=== PATIENT | male | born 1945 | race Caucasian/White ===

== ENCOUNTER 2016-07-13 09:08 | Emergency (ER) | payer MEDICARE, BC ==
--- NOTE | 2016-07-13 10:45 | ED ---
Wu Lacy Billy, scribed for Teofilo Leary MD on 07/13/16 at 1014 . Neurological HPI - HPI Summary HPI Summary: Patient is a 70 year-old male coming to [facility] for evaluation of right-sided facial droop for the last three days. Nothing makes his symptoms better or worse. The patient states that one week ago, he was reading on the bus when he developed vertigo that was worse with certain positions. He also states that his right eye has been teary for the last several days. 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 - History of Current Complaint Chief Complaint: EDNeurologicalDeficit Stated Complaint: FACIAL DROOPING Time Seen by Provider: 07/13/16 09:58 Hx Obtained From: Patient Onset/Duration: Gradual Onset, Started days ago Timing: Constant Onset Severity: Moderate Current Severity: Moderate Neurological Deficit Location: Facial Pain Intensity: 0 Aggravating: Unknown Alleviating: Unknown - Additional Pertinent History Primary Care Physician: MAHAMED - Allergy/Home Medications Allergies/Adverse Reactions: Allergies Allergy/AdvReac Type Severity Reaction Status Date / Time No Known Allergies Allergy Verified 07/13/16 09:13 PMH/Surg Hx/FS Hx/Imm Hx Endocrine/Hematology History: Reports: Hx Anticoagulant Therapy - ASA Denies: Hx Diabetes, Hx Thyroid Disease Cardiovascular History: Reports: Hx Coronary Artery Disease - Stent, Hx Hypercholesterolemia, Hx Myocardial Infarction, Other Cardiovascular Problems/ Disorders - FOLLOWED BY DR KLEIN, stenting Denies: Hx Hypertension, Hx Peripheral Vascular Disease Respiratory History: Reports: Hx Sleep Apnea - USES A "SILENT NIGHT" MOUTH GEAR Denies: Hx Asthma, Hx Chronic Obstructive Pulmonary Disease (COPD) GI History: Reports: Hx Hiatal Hernia - LONG TIME Dx, NO Sx, NO MEDS, Hx Ulcer - duadenal ulcer, Other GI Disorders - Inguinal hernia History: Reports: Hx Kidney Stones Musculoskeletal History: Reports: Other Musculoskeletal History - Rt total knee Denies: Hx Arthritis, Hx Osteoporosis Sensory History: Reports: Hx Contacts or Glasses Opthamlomology History: Reports: Hx Contacts or Glasses Neurological History: Reports: Hx Headaches Denies: Hx Seizures, Hx Transient Ischemic Attacks (TIA) Psychiatric History: Denies: Hx Anxiety, Hx Depression - Surgical History Surgery Procedure, Year, and Place: YOUNG CHILD T&A. 1953 Appendectomy, [place]. 1954 ING. HERNIA REPAIR. [id number] Inguinal Hernia Repair LEFT & RIGHT [facility]. 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 Hx Anesthesia Reactions: No Infectious Disease History: Denies: Hx Hepatitis, Hx Human Immunodeficiency Virus (HIV), Traveled Outside the [place] in Last 30 Days - Family History Family History: No FHx anesthesia reaction - Social History Alcohol Use: Daily Alcohol Amount: 1-2 PER DAY Hx Substance Use: No Substance Use Type: Reports: None Smoking Status (MU): Former Smoker Type: Cigarettes Amount Used/How Often: 1 1/2 PPD 6 YRS Have You Smoked in the Last Year: No Review of Systems Positive: Drainage Neurological: Other - right-sided facial droop; vertigo All Other Systems Reviewed And Are Negative: Yes Physical Exam Triage Information Reviewed: Yes Vital Signs On Initial Exam: Initial Vitals Temp Pulse Resp BP Pulse Ox 97.3 F 77 17 127/63 100 07/13/16 09:11 07/13/16 09:11 07/13/16 09:11 07/13/16 09:11 07/13/16 09:11 Vital Signs Reviewed: Yes Appearance: Positive: Well-Appearing, No Pain Distress Skin: Positive: Warm, Skin Color Reflects Adequate Perfusion, Dry Head/Face: Positive: Other - There is mild facial droop, forehead included. House-Brackmann grade III. Eyes: Positive: Normal ENT: Positive: Normal ENT inspection Neck: Positive: Supple, Nontender Respiratory/Lung Sounds: Positive: Clear to Auscultation, Breath Sounds Present Cardiovascular: Positive: RRR Abdomen Description: Positive: Nontender, Soft Musculoskeletal: Positive: Normal Neurological: Positive: Sensory/Motor Intact, Alert, Oriented to Person Place, Time Psychiatric: Positive: Affect/Mood Appropriate - Kevin Coma Scale Coma Scale Total: 15 Diagnostics - Vital Signs Vital Signs Temp Pulse Resp BP Pulse Ox 07/13/16 09:11 97.3 F 77 17 127/63 100 - Laboratory Lab Statement: Any lab studies that have been ordered have been reviewed, and results considered in the medical decision making process. Course/Dx - Course Course Of Treatment: Mr Downing presented with about 24 hours of right facial weakness involving his forehead and accompanied by a change in taste sensation and a mild discomfort behind his right ear. He has no other cranial nerve signs or symptoms, this seems clearly to be a Kren's and I will treat himm accordingly. - Diagnoses Provider Diagnoses: Kern's palsy Discharge - Discharge Plan Condition: Stable Disposition: HOME Prescriptions: ValACYclovir (*) [Valtrex 1 GM(*)] 1 gm PO TID #21 tab predniSONE TAB* [Deltasone TAB*] 80 mg PO DAILY #28 tab Patient Education Materials: Kern Palsy (ED) Referrals: Igor Gaspar MD [Primary Care Provider] - The documentation as recorded by the Wu rich Billy accurately reflects the service I personally performed and the decisions made by me, Teofilo Leary MD.
[2016-07-13 11:06] VITALS: BP 117/84
== END 2016-07-13 11:13 | disposition home or self-care (01) ==
LOC: ED 09:08
DX: G51.0 Bell's palsy (principal); R42 Dizziness and giddiness; Z87.891 Personal history of nicotine dependence
CPT/HCPCS: 99282

== ENCOUNTER 2016-09-28 19:59 | Emergency (ER) | payer MEDICARE, BC ==
[2016-09-28] MEDS ORDERED: NS 0.9% 1000 ML* 1,000 ML IV ONE (20:32)
[2016-09-28] MEDS ORDERED: Famotidine IV* 10 MG/ML 2 ML (20 mg) IV SLOW PU ONE (20:33)
[2016-09-28] MEDS ORDERED: diPHENhydraMINE IV* 50 MG/ML 1 ml VIAL (BENADRYL) IV ONE (20:33)
[2016-09-28 20:38] LABS: Hematocrit 48 % (42-52); Hemoglobin 15.9 g/dl (14.0-18.0); Mean Corpuscular HGB Conc 33 g/dl (31-36); Mean Corpuscular Hemoglobin 33 pg (27-31); Mean Corpuscular Volume 99 fL (80-94); Mean Platelet Volume 9 um3 (7.4-10.4); Red Blood Count 4.83 10^6/ul (4.0-5.4); Red Cell Distribution Width 13 % (10.5-15); White Blood Count 5.2 10^3/ul (3.5-10.8)
[2016-09-28 20:53] LABS: BUN/Creatinine Ratio 21.8 (8-20); EGFR African American 93.4 (>60); EGFR Non-African American 72.6 (>60); Globulin 2.2 g/dL (2-4); Potassium 3.2 mmol/L (3.5-5.0); Total Bilirubin 1.6 mg/dL (0.2-1.0); Total Protein 6.2 g/dL (6.4-8.9)
--- NOTE | 2016-09-28 21:12 | ED ---
Ines Lacy Salem, scribed for Garland Osorio MD on 09/28/16 at 2048 . Allergic Reaction/Systemic - HPI Summary HPI Summary: Patient is a 70 y/o M who presents to the ED per EMS with a possible allergic reaction to insect sting since 1905 today. He states that he was stung 3 times on his RUE and LUE by wasps, while family member present at bedside states that it was beetles. He reports lightheadedness, dizziness, and a syncope episode. He also reports nausea, vomiting, general weakness, and pruritic rashes since. SHx of Tobacco use. Denies hx of similar episode. - History of Current Complaint Chief Complaint: EDSyncope Time Seen by Provider: 09/28/16 20:29 Hx Obtained From: Patient Onset/Duration: Gradual Onset, Started hours ago, Still Present Timing: Constant, Lasting Hours Severity Initially: Moderate Severity Currently: Moderate Pain Intensity: 0 Pain Scale Used: 0-10 Numeric Location: Diffuse Character: Pruritus, Hives Aggravating Factor(s): Nothing Alleviating Factor(s): Nothing Associated Signs And Symptoms: Positive: Lightheadedness, Nausea, Syncope, Vomiting - Allergies/Home Medications Allergies/Adverse Reactions: Allergies Allergy/AdvReac Type Severity Reaction Status Date / Time No Known Allergies Allergy Verified 07/13/16 09:13 PMH/Surg Hx/FS Hx/Imm Hx Endocrine/Hematology History: Reports: Hx Anticoagulant Therapy - ASA Denies: Hx Diabetes, Hx Thyroid Disease Cardiovascular History: Reports: Hx Coronary Artery Disease - Stent, Hx Hypercholesterolemia, Hx Myocardial Infarction, Other Cardiovascular Problems/ Disorders - FOLLOWED BY DR KLEIN, stenting Denies: Hx Hypertension, Hx Peripheral Vascular Disease Respiratory History: Reports: Hx Sleep Apnea - USES A "SILENT NIGHT" MOUTH GEAR Denies: Hx Asthma, Hx Chronic Obstructive Pulmonary Disease (COPD) GI History: Reports: Hx Hiatal Hernia - LONG TIME Dx, NO Sx, NO MEDS, Hx Ulcer - duadenal ulcer, Other GI Disorders - Inguinal hernia History: Reports: Hx Kidney Stones Musculoskeletal History: Reports: Other Musculoskeletal History - Rt total knee Denies: Hx Arthritis, Hx Osteoporosis Sensory History: Reports: Hx Contacts or Glasses Opthamlomology History: Reports: Hx Contacts or Glasses Neurological History: Reports: Hx Headaches Denies: Hx Seizures, Hx Transient Ischemic Attacks (TIA) Psychiatric History: Denies: Hx Anxiety, Hx Depression - Surgical History Surgery Procedure, Year, and Place: YOUNG CHILD T&A. 195 Appendectomy, [place]. 1954 ING. HERNIA REPAIR. [id number] Inguinal Hernia Repair LEFT & [place] [facility] [place]. 2009 CARDIAC STENT [place]RAIG Hx Anesthesia Reactions: No Infectious Disease History: No Infectious Disease History: Denies: Hx Hepatitis, Hx Human Immunodeficiency Virus (HIV), Traveled Outside the [place] in Last 30 Days - Family History Known Family History: Negative: Blood Disorder Family History: No FHx anesthesia reaction - Social History Alcohol Use: Daily Alcohol Amount: 1-2 PER DAY Hx Substance Use: No Substance Use Type: Reports: None Hx Tobacco Use: Yes Smoking Status (MU): Former Smoker Type: Cigarettes Amount Used/How Often: 1 1/2 PPD 6 YRS Have You Smoked in the Last Year: No Review of Systems Positive: Vomiting, Nausea Positive: Other - 3 insect stings. Pruritic rashes. Neurological: Other - Lightheadedness and dizziness. Positive: Weakness, Syncope All Other Systems Reviewed And Are Negative: Yes Physical Exam Triage Information Reviewed: Yes Vital Signs On Initial Exam: Initial Vitals Temp Pulse Resp BP Pulse Ox 98 F 86 16 85/53 96 09/28/16 20:38 09/28/16 20:38 09/28/16 20:38 09/28/16 20:38 09/28/16 20:38 Vital Signs Reviewed: Yes Appearance: Positive: Well-Appearing, No Pain Distress Skin: Positive: Warm, Dry Head/Face: Positive: Normal Head/Face Inspection Eyes: Positive: HALINA ENT: Positive: Hearing grossly normal Neck: Positive: Supple Respiratory/Lung Sounds: Positive: Clear to Auscultation, Breath Sounds Present Cardiovascular: Positive: RRR Abdomen Description: Positive: Nontender, Soft Bowel Sounds: Positive: Present Musculoskeletal: Positive: Strength/ROM Intact Neurological: Positive: Sensory/Motor Intact, Alert, Oriented to Person Place, Time, Normal Gait Psychiatric: Positive: Affect/Mood Appropriate Diagnostics - Vital Signs Vital Signs Temp Pulse Resp BP Pulse Ox 09/28/16 20:40 98 F 87 16 85/53 97 09/28/16 20:38 98 F 86 16 85/53 96 - Laboratory Lab Results: Lab Results 09/28/16 09/28/16 09/28/16 Range/Units 20:30 20:30 20:30 WBC 5.2 (3.5-10.8) 10^3/ul RBC 4.83 (4.0-5.4) 10^6/ul Hgb 15.9 (14.0-18.0) g/dl Hct 48 (42-52) % MCV 99 H (80-94) fL MCH 33 H (27-31) pg MCHC 33 (31-36) g/dl RDW 13 (10.5-15) % Plt Count 208 (150-450) 10^3/ul MPV 9 (7.4-10.4) um3 Neut % (Auto) 64.6 (38-83) % Lymph % (Auto) 31.5 (25-47) % [place] % (Auto) 2.6 (1-9) % Eos % (Auto) 1.2 (0-6) % Baso % (Auto) 0.1 (0-2) % Absolute Neuts (auto) 3.4 (1.5-7.7) 10^3/ul Absolute Lymphs (auto) 1.7 (1.0-4.8) 10^3/ul Absolute Monos (auto) 0.1 (0-0.8) 10^3/ul Absolute Eos (auto) 0.1 (0-0.6) 10^3/ul Absolute Basos (auto) 0 (0-0.2) 10^3/ul Absolute Nucleated RBC 0.01 10^3/ul Nucleated RBC % 0.2 Sodium 137 (133-145) mmol/L Potassium 3.2 L (3.5-5.0) mmol/L Chloride 103 (101-111) mmol/L Carbon Dioxide 27 (22-32) mmol/L Anion Gap 7 (2-11) mmol/L BUN 22 (6-24) mg/dL Creatinine 1.01 (0.67-1.17) mg/dL Est GFR ( Amer) 93.4 (>60) Est GFR (Non-Af Amer) 72.6 (>60) BUN/Creatinine Ratio 21.8 H (8-20) Glucose 139 H (70-100) mg/dL Lactic Acid 2.7 H* (0.5-2.0) mmol/L Calcium 9.0 (8.6-10.3) mg/dL Magnesium 2.0 (1.9-2.7) mg/dL Total Bilirubin 1.60 H (0.2-1.0) mg/dL AST 17 (13-39) U/L ALT 11 (7-52) U/L Alkaline Phosphatase 63 (34-104) U/L Troponin I 0.00 (<0.04) ng/mL Total Protein 6.2 L (6.4-8.9) g/dL Albumin 4.0 (3.2-5.2) g/dL Globulin 2.2 (2-4) g/dL Albumin/Globulin Ratio 1.8 (1-3) Result Diagrams: 09/28/16 20:30 09/28/16 20:30 Diagnostic Studies Comment: Lactic acid: 2.7. Trop: 0.00. Trop: 0.01 Lab Statement: Any lab studies that have been ordered have been reviewed, and results considered in the medical decision making process. - CT CHEST CT Interpretation Completed By: Radiologist - CTA CHEST IMPRESSION: No pulmonary embolism identified. No other acute abnormality seen in the chest or visualized upper abdomen. - EKG 2009 EKG Interpretation: NSR @ 82 bpm. Left anterior hemiblock. Re-Evaluation - Re-Evaluation First Eval Re-Evaluation Time: 22:09 Comment: Reviewed results. Second Eval Re-Evaluation Time: 00:59 Change: Improved Comment: Discussed plan. Allergic Reaction Course/Dx - Course Course Of Treatment: 70 y/o M presents per EMS with a possible allergic reaction to insect sting since 1905 today. He reports lightheadedness, dizziness , and a syncope episode. He also reports nausea, vomiting, general weakness, and pruritic rashes since. SHx of Tobacco use. Denies hx of similar episode. He received Pepcid, IV fluids, and Benadryl in the ED course. EKG shows NSR @ 82 bpm. Left anterior hemiblock. CT shows, per radiology, IMPRESSION: No pulmonary embolism identified. No other acute abnormality seen in the chest or visualized upper abdomen. Pt will be DC'd to follow up. - Diagnoses Provider Diagnoses: Allergic reaction, Syncope - Critical Care Time Critical Care Time: 30-74 min Discharge - Discharge Plan Condition: Improved Disposition: HOME Prescriptions: predniSONE TAB* [Deltasone TAB*] 40 mg PO DAILY #8 tab Patient Education Materials: Syncope (ED), General Allergic Reaction (ED) Referrals: Igor Gaspar MD [Primary Care Provider] - Additional Instructions: Please follow up with your primary care provider. The documentation as recorded by the Ines rich Salem accurately reflects the service I personally performed and the decisions made by me, Garland Osorio MD.
[2016-09-28] MEDS ORDERED: Iohexol 350* (CONTRAST) 500 ML MDV IV ONE (22:48)
[2016-09-29] MEDS ORDERED: diPHENhydraMINE PO* 25 MG ONE (01:28)
[2016-09-29] MEDS ORDERED: diPHENhydraMINE PO* 25 MG PO ONE (01:29)
[2016-09-29 01:34] VITALS: BP 106/62
--- NOTE | 2016-09-29 07:52 | RAD ---
INDICATION: Chest pain. Short of breath. Evaluate for pulmonary embolus. COMPARISON: Chest x-ray December 11, 2015 TECHNIQUE: Axial source images were obtained from the thoracic inlet to the hemidiaphragms following administration of [address] angiographic technique was utilized. Coronal and sagittal reconstructed images were acquired. CHEST FINDINGS: Neck/thyroid: The visualized neck to include the thyroid appear normal. Chest wall: There are no acute abnormalities of the bony thorax or chest wall. There is no supraclavicular, infraclavicular, or axillary lymphadenopathy. Lungs : There are no pulmonary parenchymal masses or infiltrates. There is a tiny calcified granuloma in the right upper lobe. There is minimal bibasilar atelectasis The pulmonary interstitium appears normal. There are no endobronchial lesions. Cardiomediastinal structures: There is no CT evidence of acute pulmonary embolic disease. The heart is normal in size. There is no pericardial effusion. There is no evidence of aortic aneurysm or dissection. There are mild atherosclerotic changes. There is no mediastinal or hilar adenopathy. The esophagus appears normal. Pleura : There are no pleural-based masses or effusions. Other: None. IMPRESSION: NO CT EVIDENCE OF ACUTE PULMONARY EMBOLIC DISEASE. LUNGS CLEAR.
== END 2016-09-29 01:30 | disposition home or self-care (01) ==
LOC: ED 19:59
DX: T78.40XA Allergy, unspecified, initial encounter (principal); R42 Dizziness and giddiness; R11.2 Nausea with vomiting, unspecified; R55 Syncope and collapse; Z87.891 Personal history of nicotine dependence; X58.XXXA Exposure to other specified factors, initial encounter
CPT/HCPCS: 36415; 71275; 80053; 83605; 83735; 84484; 85025; 85379; 93005; 96374; 96375; 99284; A9270-GY; J1200; Q9967

== ENCOUNTER 2022-04-27 13:29 | Observation (INO) ==
[2022-04-27] MEDS ORDERED: Lactated Ringers 1000 ml BAG 1,000 ML IV ONE (13:45)
[2022-04-27 14:24] LABS: ABS Lymphocytes 0.4 10^3/ul (1.0-4.8); ABS Monocytes 0.7 10^3/ul (0-0.8); ABS Neutrophils 4.6 10^3/ul (1.5-7.7); Hematocrit 43 % (42-52); Hemoglobin 14.5 g/dL (14.0-18.0); Lymphocyte % 6.4 %; Mean Corpuscular HGB Conc 34 g/dL (31-36); Mean Corpuscular Hemoglobin 32 pg (27-31); Mean Corpuscular Volume 96 fL (80-94); Mean Platelet Volume 8.6 fL (7.4-10.4); Nucleated Red Blood Cells % 0.1; Platelet Count 140 10^3/uL (150-450); Red Blood Count 4.49 10^6 /uL (4.18-5.48); Red Cell Distribution Width 13 % (10-15); White Blood Count 5.7 10^3/uL (3.5-10.8)
[2022-04-27 15:27] LABS: Albumin 3.9 g/dL (3.2-5.2); Albumin/Globulin Ratio 1.7 (1-3); Calcium 8.5 mg/dL (8.6-10.3); Creatinine, Serum 0.92 mg/dL (0.67-1.17); Globulin 2.3 g/dL (2-4); Potassium 4.1 mmol/L (3.5-5.0); Total Bilirubin 1.3 mg/dL (0.2-1.0); Total Protein 6.2 g/dL (6.4-8.9); eGFR CKD-EPI 85.1 (>60)
[2022-04-27] MEDS ORDERED: NIRMATRELVIR/RITONAVIR 1 PAK eGFR > 60 PO ONE (16:02)
[2022-04-27] MEDS ORDERED: Lactated Ringers 1000 ml BAG 1,000 ML IV SCH (19:00)
[2022-04-27] MEDS ORDERED: Enoxaparin 40 MG/0.4 ML SYR SUBCUT SCH (20:00)
[2022-04-28 06:55] LABS: ABS Lymphocytes 0.8 10^3/ul (1.0-4.8); ABS Monocytes 1.1 10^3/ul (0-0.8); ABS Neutrophils 5.2 10^3/ul (1.5-7.7); Hematocrit 41 % (42-52); Hemoglobin 13.9 g/dL (14.0-18.0); Mean Corpuscular HGB Conc 34 g/dL (31-36); Mean Corpuscular Hemoglobin 32 pg (27-31); Mean Corpuscular Volume 94 fL (80-94); Mean Platelet Volume 8.6 fL (7.4-10.4); Platelet Count 116 10^3/uL (150-450); Red Blood Count 4.37 10^6 /uL (4.18-5.48); Red Cell Distribution Width 13 % (10-15); White Blood Count 7.1 10^3/uL (3.5-10.8)
[2022-04-28 07:23] LABS: Calcium 8.5 mg/dL (8.6-10.3); Creatinine, Serum 0.82 mg/dL (0.67-1.17); Potassium 3.9 mmol/L (3.5-5.0); eGFR CKD-EPI 89.9 (>60)
[2022-04-28 08:59] LABS: Osmolality Serum 276 mOsm/kg (275-295)
[2022-04-28] MEDS ORDERED: Lactated Ringers 1000 ml BAG 1,000 ML IV ONE (09:23)
[2022-04-28] MEDS ORDERED: NS 0.9% 1000 ml BAG 1,000 ML IV ONE (09:30)
[2022-04-28 11:37] LABS: Urine Osmo 164 mOsm/kg (150-1150)
[2022-04-28 11:47] LABS: Urine Appearance Clear; Urine Bilirubin Negative (Negative); Urine Blood 2+ (Negative); Urine Color Straw; Urine Glucose Negative (Negative); Urine Ketones Negative (Negative); Urine Nitrite Negative (Negative); Urine Protein Negative (Negative); Urine Specific Gravity 1.003 (1.002-1.030); Urine Urobilinogen Negative (Negative)
[2022-04-28 12:08] LABS: Urine Bacteria Absent (Absent); Urine Red Blood Cell Trace(0-2/hpf) (Absent); Urine White Blood Cell Absent (Absent)
[2022-04-28 14:58] LABS: Calcium 8.5 mg/dL (8.6-10.3); Creatinine, Serum 0.76 mg/dL (0.67-1.17); Potassium 4.1 mmol/L (3.5-5.0)
[2022-04-28 15:30] VITALS: BP 134/76
== END 2022-04-28 16:10 | disposition home or self-care (01) ==
LOC: ED 13:29 → INTOOBSV 18:35 → EDHOLD 18:35 → MED 21:07
PROVIDERS: ADMIT Student in an Organized Health Care Education/Training Program; ATTEND Hospitalist